=== PATIENT | female | born 2005 | race Caucasian/White ===

== ENCOUNTER 2025-05-29 09:26 | Emergency (ER) | payer OTHER ==
[~2025-05-29] VITALS: Ht 149.9 cm; Wt 61.0 kg
[2025-05-29 09:28] VITALS: O2SAT 96
[2025-05-29] MEDS: ACETAMINOPHEN 325MG TABLET PO ONE (10:09)
[2025-05-29] MEDS ORDERED: TOPUD PO (12:37)
[2025-05-29 12:48] VITALS: BP 114/77; PULSE 72; RESP 14; TEMP 37.1; O2SAT 100
[2025-05-29] MEDS: IBUPROFEN 400MG TABLET PO ONE (12:49)
== END 2025-05-29 12:50 | disposition home or self-care (01) ==
LOC: ER 09:26
DX: M25.511 Pain in right shoulder (principal); M54.9 Dorsalgia, unspecified; M54.2 Cervicalgia; V43.52XA Car driver injured in collision with other type car in traffic accident, initial encounter; Y93.89 Activity, other specified; Y92.410 Unspecified street and highway as the place of occurrence of the external cause; Y99.8 Other external cause status
CPT/HCPCS: 71045; 73030; 70450; 72125; 99284; Z7610 ×2